=== PATIENT | female | born 1990 | race Caucasian/White ===

== ENCOUNTER 2016-08-15 17:55 | Emergency (ER) | payer OTHER ==
[~2016-08-15 17:55] MED LIST: A/B OTIC 54 MG/15 ML OT; ABILIFY 5MG5 MG PO; AMOXIL500 MG PO; CARAFATE1 GM/10 M1 PO; FLUCONAZOLE150 MG PO; GABAPENTIN TAB600 MG PO; GABAPENTIN300 MG PO; JUNEL 1.5/30 301 TAB PO; KEFLEX 250MG C250 MG PO; LITHIUM CARB300 MG PO; LITHIUM CARBON300 M1 PO; LYRICA150 MG PO; OXYCONTIN10 MG PO; OXYCONTIN20 MG PO; PANTOPRAZOLE SO40 MG PO; PRAZOSIN HCL1 MG PO; PREDNISONE10 MG PO; PROTONIX40 M3 PO; RELPAX 40MG40 MG PO; TOPIRAMATE50 MG PO
[2016-08-15 18:02] VITALS: BP 148/85
[2016-08-15] MEDS ORDERED: CLINDAMYCIN HC300 M1 PO (18:34)
[2016-08-15] MEDS ORDERED: MEDROL4 M2 PO (18:34)
--- NOTE | 2016-08-15 18:34 | ED THROAT/DENTAL COMPLAINT ---
History of Present Illness General Chief Complaint: Sore Throat, Dental Pain Stated Complaint: SORE THROAT, TONSILS ENLARGED PER PT Source: patient, family, old records Exam Limitations: no limitations Vital Signs & Intake/Output Vital Signs & Intake/Output Vital Signs Date Time Temp Pulse Resp B/P Pulse O2 O2 Flow FiO2 Ox Delivery Rate 08/15 1802 98.6 121 18 148/85 96 Room Air Room Air Allergies Coded Allergies: MDX - Acetaminophen (GI UPSET, VIOLENTLY NAUSEA 12/30/14) MDX - Codeine (GI UPSET, VIOLENTLY NAUSEA 12/30/14) MDX - ASA (aspirin) (ASA (ASPIRIN)) (GI DISTRESS 02/14/14) Reconcile Medications Amoxicillin (Amoxil) 500 MG CAP 2 TAB PO Q8HR EAR INFECTION Antipyrine/Benzocaine (A/B Otic 54 MG/Ml-14 MG/Ml 15 Ml) 15 ML MOIRA 4 GTT OT Q2P PRN EAR PAIN Cephalexin (Keflex 250MG Cap) 250 MG CAPSULE 2 CAP PO TID wound Clindamycin HCl 300 MG CAPSULE 1 CAP PO TID STREP PHARYNGITIS Eletriptan Hydrobromide (Relpax 40MG) 40 MG TABLET 1 TAB PO AD PRN MIGRAINES (Reported) Fluconazole (Diflucan) 150 MG TABLET 1 TAB PO ONCE CANDIDIASIS Fluconazole 150 MG TABLET 1 TAB PO ONCE YEAST INFECTION Gabapentin 300 MG CAPSULE 2 CAP PO TID NEUROPATHY (Reported) Gabapentin (Gabapentin Tab 600MG) 600 MG TABLET 1 TAB PO TID PAIN CONTROL ( Reported) Methylprednisolone. (Medrol) 4 MG TAB.DS.PK 1 DP PO AD INFECTION 6 on day 1 then reduce by one tablet daily until gone Oxycodone Cr (OxyContin) 20 MG TAB.ER.12H 1 TAB PO BID PAIN (Reported) Pantoprazole Sodium 40 MG TABLET.DR 1 TAB PO DAILY AC ACID REFLUX (Reported) Pantoprazole Sodium (Protonix) 40 MG TABLET.DR 1 TAB PO DAILY GERD Sucralfate (Carafate) 1 GM/10 ML ORAL.SUSP 10 ML PO 4 TIMES/DAY PRN GERD Topiramate 50 MG TABLET 1 TAB PO BID MIGRAINES (Reported) Triage Note: TRIAGE[facility]: 26 Y/O FEMALE PRESENTS WITH 4/10 "TONSIL" PAIN SINCE 0200 THIS MORNING. REPORTS "I JUST HAD STREP, I'LL BET IT'S BACK." STREP SWABS OBTAINED AND SENT FROM [facility]. Triage Nurses Notes Reviewed? yes Onset: Abrupt Duration: day(s): (1), constant Timing: recent history Injury Environment: home Severity: mild, moderate Severity Numbers: 5 No Modifying Factors: none Associated Symptoms: DENIES : No Patient currently breastfeeds: No HPI: 26-year-old female with recent diagnosis of strep throat for which she was on antibiotics starting August 04 last week presents emergency room today complaining of one day history of sore throat feeling as though her strep throat his back. She denies any fever chills sick contacts no ear pain congestion shortness of breath. No rashes or skin no abdominal pain. No nausea vomiting or diarrhea. She is not taken anything for symptoms. She did finish antibiotics as was directed Past History Travel History Traveled to [place] past 21 day No Medical History Any Pertinent Medical History? see below for history Respiratory: asthma Musculoskeletal: chronic back pain Psychiatric: anxiety, depression, schizo affective disorder Endocrine: diabetes Surgical History Surgical History: non-contributory Psychosocial History What is your primary language Azeri Tobacco Use: Current Daily Use Daily Tobacco Use Amount/Type: => 5 Cigarettes daily ETOH Use: occasional use Illicit Drug Use: denies illicit drug use Family History Hx Contributory? No Review of Systems Review of Systems Constitutional: Reports: see HPI. All Other Systems: Reviewed and Negative Comments Review of systems: See HPI, All other systems negative. Constitutional, no chills no fever, no malaise HEENT:sore throat no congestion, Cardiovascular: No chest pain , no palpitation Skin,no rashes, no change in skin Respiratory: No dyspnea no cough no sputum GI: No nausea no vomiting, no diarrhea, : No dysuria No hematuria, no frequency, Muscle skeletal: No joint pain, no joint swelling, no back pain, no neck pain, Neurologic: No numbness no headache Psych: No stress Heme/endocrine: No bruising no bleeding Immunology: No lymphadenopathy Physical Exam Physical Exam General Appearance: well developed/nourished, alert, awake Mouth/Throat: PHARYNGEAL ERYTHEMA Comments: Well-developed well-nourished patient in no apparent distress. Head/Face: Atraumatic, no maxillary/frontal sinus tenderness, no facial swelling Eyes: PERRL, EOMI, no conjunctival injection. No nystagmus Ear:External auditory canal and Tympanic membranes clear Nose: atraumatic.Normal inspection Throat: Moist mucous membranes.pharynx is erythematous no exudate no trismus no uvula displacement. No stridor/drooling or assymetry. No swelling or edema. Neck: Supple, no lymphadenopathy, FROM Back: FROM, Nontender Cardiovascular: Regular rate and rhythms no murmurs rubs Respiratory: No respiratory distress. Patient speaking in full complete sentences. Breath sounds clear to auscultation bilaterally: NO W/R/R Extremities: full range of motion Neuro: Alert and oriented x3 Skin: Warm & dry;No appreciable rash on exposed skin Psych: Mood affect normal, normal memory normal judgment. Core Measures ACS in differential dx? No Severe Sepsis Present: No Septic Shock Present: No Progress Differential Diagnosis: epiglottitis, Ludwigs angina, odontogenic abscess, sriram- tonsillar abscess, stomatitis/gingivitis, strep pharyngitis Plan of Care: Orders Procedure Date/time Status THROAT CULTURE W/QUICK STREP 08/15 1758 Complete Discussed with patient her throat so results need for Tylenol Motrin for pain, prescription for clindamycin provided She'll follow-up with her primary care clear for discharge (ANA MIRANDA) Departure Departure Time of Disposition: 1831 Disposition: HOME OR SELF CARE Condition: Stable Clinical Impression Primary Impression: Strep pharyngitis Referrals: CAITLIN WITT MD (PCP/Family) Referred to [facility] as new patient No Additional Instructions: DRINK PLENTY OF FLUIDS, MOTRIN FOR PAIN EVERY 8 HOURS. CLINDAMYCIN DIRECTED, MEDROL DOSE LUCRETIA DIRECTED. THESE PRESCRIPTIONS WERE SENT TO THE [facility]. RETURN WITH ANY CONCERNS Departure Forms: Customer Survey General Discharge Information Prescriptions: Current Visit Scripts Clindamycin HCl 1 CAP PO TID #30 CAP Methylprednisolone. (Medrol) 1 DP PO AD #1 DP 6 on day 1 then reduce by one tablet daily until gone Fluconazole (Diflucan) 1 TAB PO ONCE #1 TAB
[2016-08-15] MEDS ORDERED: DIFLUCAN150 M1 PO (18:52)
== END 2016-08-15 18:53 ==
LOC: ERH 17:55
DX: J02.0 Streptococcal pharyngitis (principal); F17.210 Nicotine dependence, cigarettes, uncomplicated

== ENCOUNTER 2018-04-11 21:12 | Emergency (ER) | payer OTHER ==
[~2018-04-11] VITALS: Ht 167.6 cm; Wt 136.1 kg
[~2018-04-11 21:12] MED LIST changes: +CLINDAMYCIN HC300 M1 PO; +CYCLOBENZAPRINE5 M2 PO; +DIFLUCAN150 M1 PO; +MEDROL4 M2 PO; +OXYCODONE HCL5 M1 PO; +OXYCODONE HCL5 M2 PO; +PERCOCET 5-3251 EACH PO
--- NOTE | 2018-04-11 22:05 | RADIOLOGY REPORT ---
EXAMINATION: XR KNEE, LEFT CLINICAL INFORMATION: Pain. COMPARISON: None TECHNIQUE: Four views of the left knee. FINDINGS: There are 3 orthopedic screws that is in place from an anterior approach into the proximal tibial shaft. The orthopedic hardware is intact. There is no acute osseous abnormality. No fracture. No focal bone lesion or bone destruction. There is mild narrowing of the medial femoral tibial joint but no spurring or erosion. There is minor spurring of the patella also at the patellofemoral joint. There is no joint effusion. There is no chondrocalcinosis. IMPRESSION: No acute abnormality of the knee. Mild narrowing of the medial femoral tibial joint.
[2018-04-11] MEDS ORDERED: MOBIC15 M1 PO (22:21)
--- NOTE | 2018-04-11 22:21 | ED UPPER/LOWER EXTREMITY COMPL ---
History of Present Illness General Chief Complaint: Lower Extremity Problems Stated Complaint: L KNEE PAIN, "I HAVE ARTHRITIS" PER PT Source: patient Exam Limitations: no limitations Vital Signs & Intake/Output Vital Signs & Intake/Output Vital Signs Date Time Temp Pulse Resp B/P B/P Pulse O2 O2 Flow FiO2 Mean Ox Delivery Rate 04/11 2126 97.4 86 20 97 Room Air Allergies Coded Allergies: MDX - Acetaminophen (GI UPSET, VIOLENTLY NAUSEA 12/30/14) MDX - Codeine (GI UPSET, VIOLENTLY NAUSEA 12/30/14) MDX - ASA (aspirin) (ASA (ASPIRIN)) (GI DISTRESS 02/14/14) Reconcile Medications Amoxicillin (Amoxil) 500 MG CAP 2 TAB PO Q8HR EAR INFECTION Antipyrine/Benzocaine (A/B Otic 54 MG/Ml-14 MG/Ml 15 Ml) 15 ML MOIRA 4 GTT OT Q2P PRN EAR PAIN Cephalexin (Keflex 250MG Cap) 250 MG CAPSULE 2 CAP PO TID wound Clindamycin HCl 300 MG CAPSULE 1 CAP PO TID STREP PHARYNGITIS Cyclobenzaprine HCl 5 MG TABLET 1 TAB PO TIDPRN PRN pain Eletriptan Hydrobromide (Relpax 40MG) 40 MG TABLET 1 TAB PO AD PRN MIGRAINES (Reported) Fluconazole (Diflucan) 150 MG TABLET 1 TAB PO ONCE CANDIDIASIS Fluconazole 150 MG TABLET 1 TAB PO ONCE YEAST INFECTION Gabapentin 300 MG CAPSULE 2 CAP PO TID NEUROPATHY (Reported) Gabapentin (Gabapentin Tab 600MG) 600 MG TABLET 1 TAB PO TID PAIN CONTROL ( Reported) Meloxicam (Mobic) 15 MG TABLET 1 TAB PO DAILY PAIN Methylprednisolone. (Medrol) 4 MG TAB.DS.PK 1 DP PO AD INFECTION 6 on day 1 then reduce by one tablet daily until gone Oxycodone Cr (OxyContin) 20 MG TAB.ER.12H 1 TAB PO BID PAIN (Reported) Oxycodone HCl 5 MG TABLET 1 TAB PO 4XDP PRN SEVERE PAIN Oxycodone HCl 5 MG CAPSULE 1 CAP PO TID PRN BREAKTHROUGHPAIN Pantoprazole Sodium 40 MG TABLET.DR 1 TAB PO DAILY AC ACID REFLUX (Reported) Pantoprazole Sodium (Protonix) 40 MG TABLET.DR 1 TAB PO DAILY GERD Sucralfate (Carafate) 1 GM/10 ML ORAL.SUSP 10 ML PO 4 TIMES/DAY PRN GERD Topiramate 50 MG TABLET 1 TAB PO BID MIGRAINES (Reported) Triage Note: PT TO [facility] C/O L KNEE PAIN CHRONIC IN NATURE, HX ARTHRITIS, NO NEW FALL OR INJURY. PT DECLINED PAIN MED OFFERED IN [facility] STATES HAS TRIED TYLENOL, MOTRIN, GABAPENTIN AND NAPROXEN AT HOME. AMBULATED INTO [facility] WITH STEADY GAIT. Triage Nurses Notes Reviewed? yes Onset: Abrupt Duration: day(s): Timing: recent history Severity: moderate, severe Pain/Injury Location: Left: Knee. : No Patient currently breastfeeds: No HPI: 27-year-old female comes into the emergency room with complaints of left knee pain for 3 weeks. Pain is sharp. Continuous. Hurts with certain movements especially when she kneels on her knee. Denies any falls or trauma. She has a history of chronic knee problems and a history of arthritis. She comes in seeking further evaluation. (Vance Vega) Past History Travel History Traveled to [place] past 21 day No Medical History Any Pertinent Medical History? see below for history Neurological: NONE EENT: NONE Cardiovascular: hypertension Respiratory: asthma Gastrointestinal: NONE Hepatic: NONE Renal: NONE Musculoskeletal: chronic back pain Psychiatric: anxiety, depression, schizo affective disorder Endocrine: BORDERLINE DIABETES Surgical History Surgical History: non-contributory Psychosocial History What is your primary language Martiniquais Tobacco Use: Current Daily Use Daily Tobacco Use Amount/Type: => 5 Cigarettes daily ETOH Use: denies use Illicit Drug Use: marijuana Family History Hx Contributory? No (aVnce Vega) Review of Systems Review of Systems Constitutional: Reports: no symptoms. EENTM: Reports: no symptoms. Respiratory: Reports: no symptoms. Cardiovascular: Reports: no symptoms. Gastrointestinal/Abdominal: Reports: no symptoms. Genitourinary: Reports: no symptoms. Musculoskeletal: Reports: see HPI. Skin: Reports: no symptoms. Neurological/Psychological: Reports: no symptoms. Hematologic/Endocrine: Reports: no symptoms. Immunological: Reports: no symptoms. All Other Systems: Reviewed and Negative (Vance Vega) Physical Exam Physical Exam General Appearance: well developed/nourished, mild distress Head: atraumatic Eyes: Bilateral: normal appearance. Ears, Nose, Throat: normal ENT inspection, hearing grossly normal Neck: normal inspection Cardiovascular/Respiratory: no respiratory distress Back: normal inspection Knee Left: soft tissue tenderness, limited range of motion, Positive Feliciano's test, tenderness over MCL Neurologic/Tendon: normal sensation, normal motor functions, responds to pain, no evidence tendon injury, no pulse deficit Skin: intact, normal color, warm/dry Lymphatic: no anterior cervical ramesh (Vance Vega) Progress Differential Diagnosis: contusion, fracture, sprain, tendon injury, muscle strength Plan of Care: Orders Procedure Date/time Status Durable Medical Equipment 04/11 2222 Active Diagnostic Imaging: Viewed by Me: Radiology Read. Discussed w/RAD: Radiology Read. Radiology Impression: PATIENT: MARIA TERESA ALMONTE PRESENT AGE: 27 PATIENT ACCOUNT NO: [id number] : 90 LOCATION: [facility] ORDERING PHYSICIAN: Vance WOOD SERVICE DATE: 04/11/18 EXAM TYPE : RAD - XRY-KNEE, LEFT EXAMINATION: XR KNEE, LEFT CLINICAL INFORMATION: Pain. COMPARISON: None TECHNIQUE: Four views of the left knee. FINDINGS: There are 3 orthopedic screws that is in place from an anterior approach into the proximal tibial shaft. The orthopedic hardware is intact. There is no acute osseous abnormality. No fracture. No focal bone lesion or bone destruction. There is mild narrowing of the medial femoral tibial joint but no spurring or erosion. There is minor spurring of the patella also at the patellofemoral joint. There is no joint effusion. There is no chondrocalcinosis. IMPRESSION: No acute abnormality of the knee. Mild narrowing of the medial femoral tibial joint. DICTATED BY: Jose Cantrell MD DATE/TIME DICTATED:04/11/182199 BOX OFFICE AGENT :FRANCY DATE/TIME TRANSCRIBED:04/11/182199 CONFIDENTIAL, DO NOT COPY WITHOUT APPROPRIATE AUTHORIZATION. <Electronically signed in Other Vendor System> SIGNED BY: Jose Cantrell MD 04/11/182204 (Vance Vega) Departure Departure Disposition: HOME OR SELF CARE Condition: Stable Clinical Impression Primary Impression: Left knee pain Referrals: Shivani GARCIA,Zacarias Moreno MD,Ofelia (PCP/Family) Additional Instructions: Ice. Rest. Motrin for pain. Elevation. Follow-up with orthopedic doctor provided if not better in 3-5 days. If symptoms do not improve you'll require further evaluation with possible repeat x-rays as well as evaluation by planning specialist. Sprains can last anywhere from days to weeks. No high impact running or jumping if you have an ankle sprain or any type of lower extremity sprain. Return to normal activity only after symptoms have resolved. Please go over all results of today's visit with your primary care doctor. Contact your primary care doctor to let them know you were here in the emergency room. There may be nonspecific findings which may not be related to your visit today here in the emergency room but may require further evaluation and chronic monitoring by your primary care doctor. If you had a laceration today the chance of foreign body always remains. You should follow-up with your primary care doctor for recheck in 3-5 days for a wound check. If you had an x-ray done there is a chance that a fracture could have been missed on initial read and you should follow-up with your primary care doctor for repeat x-rays if symptoms persist. If your blood pressure was elevated here in the emergency room please have rechecked by [facility] primary care doctor within the next 48. If you were prescribed a narcotic here in the emergency room or any type of controlled substances you're not allowed to drive while taking this medication or operate any type of heavy machinery. Narcotics can make you feel lightheaded dizziness nausea and can cause constipation. You may need to slat pickler a stool softener. Thank you for choosing [facility] emergency room. Please return to the emergency room immediately if you have any other concerns worsening of symptoms. Departure Forms: Customer Survey General Discharge Information Prescriptions: Current Visit Scripts Meloxicam (Mobic) 1 TAB PO DAILY #30 TAB (Vance Vega) PA/OLIVE PITTER Co-Sign Statement Statement: ED Attending supervision documentation- [] I saw and evaluated the patient. I have also reviewed all the pertinent lab results and diagnostic results. I agree with the findings and the plan of care as documented in the PA's/OLIVE PITTER's documentation. [X] I have reviewed the ED Record and agree with the PA's/OLIVE PITTER's documentation. [] Additions or exceptions (if any) to the PAs/OLIVE PITTER's note and plan are summarized below: [] (Hitesh GARCIA,Yury Winter) Procedures Splinting Location: left knee Manual Alignment Performed: No Pre-Made Type: knee imobilizer Splint Applied By: splint applied by me Pre-Proc Neuro Vasc Exam: normal Post-Proc Neuro Vasc Exam: normal (Vance Vega)
== END 2018-04-11 22:53 ==
LOC: ERH 21:12
DX: M25.562 Pain in left knee (principal)
CPT/HCPCS: 73560-LT